=== PATIENT | male | born 1995 | race African-American/Black ===

== ENCOUNTER 2021-05-01 11:04 | Emergency (ER) | payer BC, MEDICAID ==
[~2021-05-01] VITALS: Ht 175.3 cm; Wt 83.0 kg
[2021-05-01] MEDS ORDERED: SODIUM CHLORIDE 0.9% 1,000 ML IV ONE (12:00)
[2021-05-01 12:20] LABS: BASOPHILS % 0.3 % (0.0-2.0); EOSINOPHILS % 7.6 % (0.0-5.0); HEMATOCRIT. 39.2 % (42.0-52.0); HEMOGLOBIN. 13.1 g/dL (14.0-18.0); LYMPHOCYTES % 12.9 % (20.0-50.0); MEAN CORPUSCULAR HEMOGLOBIN 27.8 pg (28.0-32.0); MEAN CORPUSCULAR VOLUME 82.9 fL (80.0-94.0); MEAN PLATELET VOLUME 7.6 fl (7.4-10.4); MONOCYTES % 9.3 % (2.0-8.0); NEUTROPHILS % 69.9 % (40.0-76.0); PLATELET 294 x1000/uL (130-400); RED BLOOD CELL COUNT 4.72 mill/uL (4.7-6.1); RED CELL DISTRIBUTION WIDTH 15.3 % (11.6-14.6)
[2021-05-01 12:26] LABS: CHLORIDE 107 mEq/L (98-107)
[2021-05-01 12:29] LABS: ETHANOL BLOOD 86 mg/dL
[2021-05-01] MEDS ORDERED: KETOROLAC 15MG/ML VIAL IV ONE (12:30)
[2021-05-01 13:43] LABS: *AMPHETAMINES SCREEN URINE PRESUMTIVE POSITIVE (NEGATIVE); *BARBITURATES SCREEN URINE NEGATIVE (NEGATIVE); *COCAINE SCREEN URINE NEGATIVE (NEGATIVE); CANNABINOID URINE SCREEN NEGATIVE (NEGATIVE); PHENCYCLIDINE URINE SCREEN NEGATIVE (NEGATIVE)
[2021-05-01 13:44] LABS: *BENZODIAZEPINES SCREEN URINE NEGATIVE (NEGATIVE); METHADONE URINE SCREEN NEGATIVE (NEGATIVE); OPIATES URINE SCREEN NEGATIVE (NEGATIVE)
[2021-05-01] MEDS ORDERED: IOHEXOL 350 MG/ML 200ML INFUS..BTL IV ONE (15:22)
[2021-05-01] MEDS ORDERED: IOHEXOL-300 100 ML BOTTLE ONE (15:22)
[2021-05-01] MEDS ORDERED: IBUP-2028 MT (15:46)
[2021-05-01 16:20] VITALS: BP 110/69
== END 2021-05-01 16:26 | disposition home or self-care (01) ==
LOC: ER 11:04
DX: F10.129 Alcohol abuse with intoxication, unspecified (principal); M79.605 Pain in left leg; F15.129 Other stimulant abuse with intoxication, unspecified; Y90.4 Blood alcohol level of 80-99 mg/100 ml
CPT/HCPCS: 36415; 73552; 73560; 73701; 80053; 80305; 80320; 85025; 93970; 96361; 96374; 99285; J1885; J7030; Q9967; G0480